=== PATIENT | female | born 1940 | race Hispanic/Latino ===

== ENCOUNTER → 2017-10-19 | Outpatient (CLI) | payer OTHER ==
[~2017-10-19] MED LIST: LEVO25TA54 PO; LISI-613 PO; LISI10TA7 PO; METF500T6 PO; RANI300T4 PO; SAXA5TAB PO; SIMV40TA5 PO; SIMV40TA59 PO; SOLI5 PO
== END | disposition home or self-care (01) ==
LOC: RAH 09:21
PROVIDERS: ATTEND Internal Medicine
DX: M19.042 Primary osteoarthritis, left hand (principal); M19.041 Primary osteoarthritis, right hand
CPT/HCPCS: 73130

== ENCOUNTER → 2018-01-10 | Outpatient (CLI) | payer OTHER ==
[~2018-01-10] MED LIST changes: +ACET-2893 PO; +GABA-529 PO; +GABA-531 PO; +METF10004 PO
== END | disposition home or self-care (01) ==
LOC: RAH 10:05
PROVIDERS: ATTEND Internal Medicine
DX: M25.552 Pain in left hip (principal); M25.551 Pain in right hip; M54.5 Low back pain
CPT/HCPCS: 72100; 73521

== ENCOUNTER → 2018-01-12 | Outpatient (CLI) | payer OTHER | END | disposition home or self-care (01) | LOC: RAH 15:49 | PROVIDERS: ATTEND Internal Medicine | DX: M48.54XA Collapsed vertebra, not elsewhere classified, thoracic region, initial encounter for fracture (principal) | CPT/HCPCS: 72070 ==

== ENCOUNTER → 2018-08-29 | Outpatient (CLI) | payer OTHER ==
[~2018-08-29] MED LIST changes: -GABA-529 PO; -GABA-531 PO; -LISI10TA7 PO; +METF-446 PO; -METF10004 PO; -METF500T6 PO; -RANI300T4 PO; -SAXA5TAB PO; -SIMV40TA59 PO
== END | disposition home or self-care (01) ==
LOC: RAH 10:54
PROVIDERS: ATTEND Internal Medicine
DX: S22.080S Wedge compression fracture of T11-T12 vertebra, sequela (principal); Z98.890 Other specified postprocedural states; X58.XXXS Exposure to other specified factors, sequela
CPT/HCPCS: 72072; 72100

== ENCOUNTER 2018-11-13 05:30 | Day surgery (SDC) | payer OTHER ==
[2018-11-05 11:43] LABS: BASOPHILS % (AUTO) 0.5 % (0.0-5.0); EOSINOPHILS % (AUTO) 1.5 % (0.0-8.0); HEMATOCRIT 39.6 % (36-48); LYMPHOCYTES % (AUTO) 31.3 % (21.0-51.0); MEAN CORPUSCULAR HEMOGLOBIN 27.4 pg (27.0-33.0); MEAN CORPUSCULAR HGB CONC 33.4 g/dL (32.0-36.0); MEAN CORPUSCULAR VOLUME 81.8 fL (79-99); MONOCYTES % (AUTO) 5.7 % (3.0-13.0); PLATELET COUNT (AUTO) 261 K/uL (130-400); RED BLOOD CELL COUNT(AUTO) 4.84 MIL/uL (4.00-5.50); RED CELL DISTRIBUTION WIDTH 14.9 % (11.0-15.5)
[2018-11-05 11:50] LABS: CREATININE 0.7 mg/dL (0.5-1.5); POTASSIUM 4.3 mmol/L (3.5-5.1)
[2018-11-05 11:58] VITALS: BP 140/59
[~2018-11-13] VITALS: Ht 151.1 cm; Wt 58.9 kg
[2018-11-13] VITALS (17 sets, daily range): BP systolic 128–164; BP diastolic 60–83
[~2018-11-13 05:30] MED LIST changes: +CALC3.8S NS; +CEFAZOLIN SODIUM 1 GM VIAL IVP SCH; +GABA-531 PO; -LEVO25TA54 PO; +LEVO50TA11 PO; +METF-444 PO; -METF-446 PO; -SIMV40TA5 PO; -SOLI5 PO
[2018-11-13] MEDS ORDERED: SODIUM CHLORIDE 0.9% 1000ML 1,000 ML IV ONE (06:48)
[2018-11-13] MEDS ORDERED: CEFAZOLIN SODIUM 1 GM VIAL ONE (06:48)
[2018-11-13] MEDS ORDERED: LIDOCAINE HCL/EPINEPHRINE 50 ML VIAL IJ ONE (07:22)
[2018-11-13] MEDS ORDERED: FENTANYL CITRATE PF 50 MCG/1 ML 2ML VIAL ONE ×2 (08:00→09:16)
[2018-11-13] MEDS ORDERED: MIDAZOLAM HCL 1 MG/ML 2ML VIAL ONE (08:00)
[2018-11-13] MEDS ORDERED: IOPAMIDOL 10 ML VIAL ONE (08:38)
[2018-11-13] MEDS ORDERED: PROPOFOL 10 MG/ML 20ML VIAL IV ONE (09:19)
[2018-11-13] MEDS ORDERED: ESMOLOL HCL 10 MG/ML 10 ML VIAL ONE (09:28)
[2018-11-13] MEDS ORDERED: LIDOCAINE PF 2% 5ML ABBOJECT ONE (09:37)
[2018-11-13] MEDS ORDERED: SUCCINYLCHOLINE 200MG/10ML SYR ONE (09:42)
[2018-11-13] MEDS ORDERED: ACETAMINOPHEN-CODEINE 300/30MG TAB ONE (12:40)
[2018-11-13] MEDS ORDERED: ACETAMINOPHEN-CODEINE 300/30MG TAB PO SCH (12:45)
== END 2018-11-13 14:30 | disposition home or self-care (01) ==
LOC: DAH 05:30
PROVIDERS: ATTEND Neurological Surgery
DX: S22.088A Other fracture of T11-T12 vertebra, initial encounter for closed fracture (principal); X58.XXXA Exposure to other specified factors, initial encounter; Y93.89 Activity, other specified; Y92.89 Other specified places as the place of occurrence of the external cause; Y99.9 Unspecified external cause status; M54.5 Low back pain; Z98.890 Other specified postprocedural states; Z79.899 Other long term (current) drug therapy; I10 Essential (primary) hypertension
CPT/HCPCS: 22510; 36415; 72020; 80048; 82948 ×2; 85025; A4215; A4218; C1776; J0330; J0690; J2001; J2250; J2704; J3010 ×2; J3490; J7030; Q9966

== ENCOUNTER → 2018-12-28 | Outpatient (CLI) | payer OTHER ==
[~2018-12-28] MED LIST changes: -CEFAZOLIN SODIUM 1 GM VIAL IVP SCH
== END | disposition home or self-care (01) ==
LOC: RAH 12:05
PROVIDERS: ATTEND Internal Medicine
DX: M48.061 Spinal stenosis, lumbar region without neurogenic claudication (principal); M40.294 Other kyphosis, thoracic region; M85.88 Other specified disorders of bone density and structure, other site
CPT/HCPCS: 72070; 72100

== ENCOUNTER → 2020-08-18 | Outpatient (CLI) | payer OTHER | END | disposition home or self-care (01) | LOC: RAH 14:42 | PROVIDERS: ATTEND Internal Medicine | DX: M79.89 Other specified soft tissue disorders (principal); M25.571 Pain in right ankle and joints of right foot; W19.XXXA Unspecified fall, initial encounter | CPT/HCPCS: 73610; 73630 ==

== ENCOUNTER → 2020-08-24 | Outpatient (CLI) | payer OTHER | END | disposition home or self-care (01) | LOC: RAH 15:22 | PROVIDERS: ATTEND Internal Medicine | DX: S90.31XA Contusion of right foot, initial encounter (principal); M20.11 Hallux valgus (acquired), right foot; X58.XXXA Exposure to other specified factors, initial encounter; Y93.89 Activity, other specified; Y92.89 Other specified places as the place of occurrence of the external cause; Y99.8 Other external cause status | CPT/HCPCS: 73610; 73630 ==

== ENCOUNTER → 2022-05-19 | Outpatient (CLI) | payer OTHER ==
[~2022-05-19] MED LIST changes: -LISI-613 PO; +LISI20TA24 PO
== END | disposition home or self-care (01) ==
LOC: RAH 09:56
PROVIDERS: ATTEND Internal Medicine
DX: M16.9 Osteoarthritis of hip, unspecified (principal); M25.552 Pain in left hip; Z68.20 Body mass index [BMI] 20.0-20.9, adult
CPT/HCPCS: 73502

== ENCOUNTER → 2022-05-30 | Outpatient (CLI) | payer OTHER | END | disposition home or self-care (01) | LOC: RAH 19:01 | PROVIDERS: ATTEND Internal Medicine | DX: S32.592A Other specified fracture of left pubis, initial encounter for closed fracture (principal); X58.XXXA Exposure to other specified factors, initial encounter; Y93.89 Activity, other specified; Y92.89 Other specified places as the place of occurrence of the external cause; Y99.8 Other external cause status | CPT/HCPCS: 72192 ==

== ENCOUNTER → 2024-03-11 | Outpatient (CLI) | payer OTHER ==
[2024-03-11 10:52] LABS: BASOPHILS # (AUTO) 0.02 K/uL (0.00-0.20); BASOPHILS % (AUTO) 0.3 % (0.0-5.0); EOSINOPHILS # (AUTO) 0.03 K/uL (0.00-0.70); EOSINOPHILS % (AUTO) 0.5 % (0.0-8.0); HEMATOCRIT 36.9 % (36-48); IMMATURE GRANULOCYTE ABSOLUTE 0.02 K/uL (0-1); LYMPHOCYTES # (AUTO) 1.9 K/uL (1.0-4.8); LYMPHOCYTES % (AUTO) 30.5 % (21.0-51.0); MEAN CORPUSCULAR HEMOGLOBIN 25.2 pg (27.0-33.0); MEAN CORPUSCULAR HGB CONC 32.5 g/dL (32.0-36.0); MEAN CORPUSCULAR VOLUME 77.5 fL (79-99); MONOCYTES # (AUTO) 0.5 K/uL (0.1-1.0); MONOCYTES % (AUTO) 7.4 % (3.0-13.0); NEUTROPHILS # (AUTO) 3.8 K/uL (1.8-7.7); PLATELET COUNT (AUTO) 296 K/uL (130-400); RED BLOOD CELL COUNT(AUTO) 4.76 MIL/uL (4.00-5.50); RED CELL DISTRIBUTION WIDTH 19.8 % (11.0-15.5); WHITE BLOOD COUNT (AUTO) 6.2 K/uL (4.8-10.8)
[2024-03-11 11:06] LABS: ALBUMIN 3.8 g/dL (3.5-5.0); BILIRUBIN,TOTAL 0.3 mg/dL (0.2-1.0); CREATININE 0.8 mg/dL (0.5-1.0); POTASSIUM 4.2 mmol/L (3.5-5.1); TOTAL PROTEIN, SERUM 6.9 g/dL (6.0-8.3)
== END | disposition home or self-care (01) ==
LOC: LAB 10:00
PROVIDERS: ATTEND Internal Medicine Gastroenterology
DX: R10.30 Lower abdominal pain, unspecified (principal); I10 Essential (primary) hypertension; E11.9 Type 2 diabetes mellitus without complications; Z79.899 Other long term (current) drug therapy
CPT/HCPCS: 36415; 80053; 85025

== ENCOUNTER → 2024-03-14 | Outpatient (CLI) | payer OTHER ==
[~2024-03-14] MED LIST changes: +IOHEXOL-350 75 ML VIAL IV ONE
== END | disposition home or self-care (01) ==
LOC: RAH 08:16
PROVIDERS: ATTEND Internal Medicine Gastroenterology
DX: R10.30 Lower abdominal pain, unspecified (principal); Z90.49 Acquired absence of other specified parts of digestive tract
CPT/HCPCS: 74177; Q9967

== ENCOUNTER → 2025-07-03 | Outpatient (CLI) | payer OTHER ==
--- NOTE | 2025-07-04 17:22 | HMCIMG ---
EXAM: MRI LUMBAR SPINE WITHOUT CONTRAST CLINICAL INFORMATION: Lumbago with left-sided sciatica. TECHNIQUE: Multiplanar, multisequence MRI of the lumbar spine was performed without intravenous contrast. CONTRAST: No intravenous contrast administered. COMPARISON: None provided. FINDINGS: ALIGNMENT: Normal lumbar lordosis with mild levoscoliosis. Mild anterolisthesis of L5 on S1. For the purposes of this examination, the most inferior normal diameter disc space is designated L5S1. Plain radiographs are recommended to confirm vertebral numbering prior to any spinal intervention. VERTEBRAL BODIES: Lumbar vertebral body heights are preserved without acute compression deformity. There are severe chronic compression deformities of T11 and T12 with prior vertebral augmentation/kyphoplasty. Cement extends into the adjacent T10T11, T11T12, and T12L1 disc spaces. Small Schmorl nodes are present at the superior endplate of L1 and inferior endplate of T10. Multilevel endplate osteophytic spurring is noted. BONE MARROW SIGNAL: Marrow signal is within normal limits for age without suspicious focal osseous lesion or diffuse marrow reconversion. DISC SPACES: Mild multilevel disc space narrowing and disc desiccation throughout the lumbar spine. CONUS MEDULLARIS AND CAUDA EQUINA: The conus medullaris terminates at the L1 level and demonstrates normal signal. A small perineural cyst is present along the right exiting S1 nerve root. PARASPINAL SOFT TISSUES: No abnormal paraspinal soft tissue mass, fluid collection, or edema is identified. OTHER: Incidental simple cyst in the superior pole of the right kidney measuring approximately 23 mm, without suspicious features. LEVEL BY LEVEL: L1L2: Intervertebral disc is preserved. Facet and ligamentum flavum hypertrophy are present. No significant central canal stenosis or neural foraminal narrowing. L2L3: Intervertebral disc is preserved. Facet and ligamentum flavum hypertrophy are present. No central canal stenosis. Neural foramina are patent. L3L4: Broad-based posterior disc protrusion measuring approximately 4.3 mm effaces the ventral thecal sac. Facet arthropathy and ligamentum flavum hypertrophy are present. There is mild central canal stenosis and [id number] bilateral neural foraminal stenosis with mild impingement of the exiting L3 nerve roots. L4L5: Diffuse broad-based circumferential disc bulge effaces the ventral thecal sac. Facet arthropathy and ligamentum flavum hypertrophy are present. There is severe bilateral neural foraminal stenosis with impingement of the exiting L4 nerve roots. No significant central canal stenosis at this level. L5S1: Diffuse asymmetric disc bulge impinges the ventral thecal sac. In conjunction with facet arthropathy and mild anterolisthesis of L5 on S1, there is severe bilateral neural foraminal stenosis, more pronounced on the left, with impingement of the exiting L5 nerve roots. No significant central canal stenosis. IMPRESSION: * Multilevel lumbar spondylosis with diffuse disc desiccation, facet arthropathy, and mild anterolisthesis of L5 on S1, without evidence of acute fracture, neoplasm, or discitis. * L3L4: Broad-based posterior disc protrusion with associated facet and ligamentum flavum hypertrophy causing mild central canal stenosis and [id number] bilateral neural foraminal stenosis with impingement of the exiting L3 nerve roots. Correlate clinically for L3 radiculopathy. * L4L5: Broad-based circumferential disc bulge with facet arthropathy and ligamentum flavum hypertrophy resulting in severe bilateral neural foraminal stenosis and impingement of the exiting L4 nerve roots, without significant central canal stenosis. Correlate for L4 radiculopathy and consider spine surgery or interventional pain consultation if symptoms are refractory to conservative management. * L5S1: Asymmetric broad-based disc bulge with facet arthropathy and mild anterolisthesis of L5 on S1 producing severe bilateral, left greater than right, neural foraminal stenosis with impingement of the exiting L5 nerve roots, providing a structural correlate for the reported left-sided sciatica. In the setting of persistent or progressive neurologic symptoms, referral to a contract administration specialist for further management, including consideration of targeted injection or surgical decompression, is recommended. * Chronic severe compression deformities of T11 and T12 treated with vertebral augmentation, with cement extension into adjacent disc spaces, without MRI evidence of acute complication. * Small perineural cyst along the right S1 nerve root and a simple right renal cyst in the superior pole (23 mm), both benign incidental findings that do not require dedicated imaging follow-up in the absence of new or localizing symptoms. /Raymond
== END | disposition home or self-care (01) ==
LOC: RAH 13:02
PROVIDERS: ATTEND Internal Medicine
DX: M47.817 Spondylosis without myelopathy or radiculopathy, lumbosacral region (principal); M54.42 Lumbago with sciatica, left side; M43.17 Spondylolisthesis, lumbosacral region; M51.379 Other intervertebral disc degeneration, lumbosacral region without mention of lumbar back pain or lower extremity pain; M48.07 Spinal stenosis, lumbosacral region; M48.54XA Collapsed vertebra, not elsewhere classified, thoracic region, initial encounter for fracture; N28.1 Cyst of kidney, acquired; G96.191 Perineural cyst
CPT/HCPCS: 72148